=== PATIENT | male | born 1985 | race Hispanic/Latino ===

== ENCOUNTER 2018-11-11 16:00 | Outpatient (CLI) | payer OTHER | END 2018-11-11 16:01 | disposition home or self-care (01) | LOC: SLEEPLAB 16:00 | PROVIDERS: ATTEND Family Medicine | DX: G47.33 Obstructive sleep apnea (adult) (pediatric) (principal); R51 Headache; R53.83 Other fatigue; R06.83 Snoring; K21.9 Gastro-esophageal reflux disease without esophagitis; R35.1 Nocturia; I10 Essential (primary) hypertension; E11.9 Type 2 diabetes mellitus without complications; G47.00 Insomnia, unspecified; E66.9 Obesity, unspecified; Z68.44 Body mass index [BMI] 60.0-69.9, adult | CPT/HCPCS: 95806 ==

== ENCOUNTER 2018-11-27 20:30 | Outpatient (CLI) | payer OTHER | END 2018-11-27 20:31 | disposition home or self-care (01) | LOC: SLEEPLAB 20:30 | PROVIDERS: ATTEND Family Medicine | DX: G47.33 Obstructive sleep apnea (adult) (pediatric) (principal); R53.83 Other fatigue; R51 Headache; R06.83 Snoring; K21.9 Gastro-esophageal reflux disease without esophagitis; R35.0 Frequency of micturition; I10 Essential (primary) hypertension; E11.9 Type 2 diabetes mellitus without complications; G47.10 Hypersomnia, unspecified; E66.9 Obesity, unspecified; Z68.44 Body mass index [BMI] 60.0-69.9, adult | CPT/HCPCS: 95811 ==

== ENCOUNTER 2019-03-05 10:30 | Outpatient (CLI) | payer OTHER ==
--- NOTE | 2019-03-05 10:57 | CT ---
CT Stone Protocol: 03/05/2019 12:00 AM HISTORY: Gross hematuria that began yesterday COMPARISON: None. TECHNIQUE: Multiple contiguous axial images were obtained and a CT of the abdomen and pelvis without IV contrast . Coronal reformats were performed. FINDINGS: This examination is limited for the evaluation of solid organs and vascular structures due to the lac k of intravenous contrast. Lower Chest: within normal limits. Abdomen: Liver: within normal limits. Bile Ducts: Normal caliber. Gallbladder: No calcified gallstones. Normal caliber wall. Pancreas: within normal limits. Spleen: within normal limits. Adrenals: within normal limits. Kidneys: within normal limits. No significant hydronephrosis. Pelvis: Reproductive Organs: No pelvic masses. Ureters: There is a calcification in the left pelvis measuring 3 mm in size which may be in the dista l left ureter. Stranding changes are seen surrounding the left ureter. Bladder: within normal limits. Bowel: Normal caliber. 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 Normal appendix. Mesenteric Lymph Nodes: No enlarged mesenteric lymph nodes. Peritoneum: No ascites or free air, no fluid collection. Vessels: Normal caliber aorta Retroperitoneum: within normal limits. Abdominal Wall: within normal limits. Bones: Unremarkable. IMPRESSION: Possible left distal ureteral calcification without evidence of obstruction.
== END 2019-03-05 10:31 | disposition home or self-care (01) ==
LOC: BICCT 10:30
PROVIDERS: ATTEND Physician Assistant
DX: K92.1 Melena (principal); R10.9 Unspecified abdominal pain; R31.0 Gross hematuria
CPT/HCPCS: 74176

== ENCOUNTER 2019-08-08 16:18 | Outpatient (CLI) | payer OTHER ==
--- NOTE | 2019-08-08 16:34 | RAD ---
EXAM: 3 views of the left foot HISTORY: Pain in the metatarsals of the left foot COMPARISON: None FINDINGS: 3 views of the left foot shows no evidence of acute fracture or dislocation. Mild dorsal so ft tissue swelling is seen. No degenerative changes are present. IMPRESSION: No evidence of acute osseous abnormality.
== END 2019-08-08 16:19 | disposition home or self-care (01) ==
LOC: BICRAD 16:18
PROVIDERS: ATTEND Family Medicine
DX: M89.8X7 Other specified disorders of bone, ankle and foot (principal)